=== PATIENT | male | born 1990 | race Caucasian/White ===

== ENCOUNTER 2018-05-19 14:21 | Emergency (ER) | payer SELFPAY ==
[~2018-05-19] VITALS: Ht 175.3 cm; Wt 75.0 kg
[2018-05-19 14:26] VITALS: BP 112/76
== END 2018-05-19 18:36 | disposition left against medical advice (07) ==
LOC: ER 14:21
DX: Z53.21 Procedure and treatment not carried out due to patient leaving prior to being seen by health care provider (principal)